=== PATIENT | male | born 2000 | race African-American/Black ===

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

== ENCOUNTER 2020-08-16 08:15 | Emergency (ER) | payer SELFPAY ==
[2020-08-16 08:17] VITALS: BP 122/78; PULSE 69; RESP 16; TEMP 36.2; O2SAT 100; BMI 21.7
--- NOTE | 2020-08-16 08:34 | EDS_ITS ---
HPI History of Present Illness Chief Complaint: Upper Extremity Injury Narrative Narrative: Patient presenting for evaluation secondary to pain and swelling in his bilateral wrists. Patient states that he was dealing with a slight rash over his left chest. He states that it was itchy, when he woke up this morning it seemed like that rash was gone he had a translocated more so over to the lateral portion of his left forearm but now he is waking up with a significant amount of bilateral wrist pain. Pain is worse with movement. Denies any fevers. He does report the potentially has been having some night sweats. He denies any other infectious symptoms such as cough abdominal pain nausea vomiting diarrhea. Patient denies that he has been camping, no tick bites or insect bites. He is never really had any prior similar episodes in the past. The wrist pain is atraumatic and has not really been associated with any sort of increased use, lifting twisting pushing or pulling. Patient denies any urinary signs or symptoms, he denies any penile discharge. He denies any history of alcohol or tobacco use or any IV drug use or illicit drug use. Patient has not tried anything for this yet. PFSH PFSH Home Medications tramadol [Ultram] 50 mg PO Q6H PRN PRN #10 tab 07/10/16 [Rx Last Taken Unknown] naproxen 500 mg PO BID PRN #20 tab 08/16/20 [Rx Last Taken Unknown] Allergy/AdvReac Type Severity Reaction Status Date / Time No Known Allergies Allergy Verified 08/16/20 08:16 Social History Smoking Status: Never smoker ROS [facility] ED Constitutional Constitutional ED: Reports other Details: Night sweats Eyes Eyes: Denies change in vision ENT ENT ED: Denies rhinorrhea or sore throat Cardiovascular Cardiovascular: Denies chest pain or palpitations Respiratory/Chest Respiratory/Chest: Denies cough or dyspnea Gastrointestinal Gastrointestinal: Denies abdominal pain, diarrhea, nausea or vomiting Genitourinary Genitourinary ED: Denies dysuria, hematuria or urinary frequency Musculoskeletal Musculoskeletal: Reports myalgias; Denies back pain or neck pain Integumentary Reports rash Neurologic Neurologic: Denies headache(s), paresthesias or weakness Psychiatric Psychiatric: Denies anxiety or depression Endocrine Endocrinology: Denies polydipsia or polyuria Hematologic/Lymphatic Hematologic/Lymphatic: Denies easy bleeding or easy bruising Allergic/Immunologic Allergic/Immunologic ED: Denies urticaria EXAM Physical Exam Const Vital Signs: 08/16/20 08:17 Temperature 97.1 F L Temperature Source Temporal Pulse Rate 69 Respiratory Rate 16 Blood Pressure 122/78 H Blood Pressure Mean 92 Pulse Ox 100 Oxygen Delivery Method Room Air Positive well nourished and well developed General Appearance ED: well developed and NAD HEENT Reports moist mucous membranes normocephalic and atraumatic Eyes PERRL and EOMs intact bilaterally Neck full ROM and supple General: Negative for tenderness Chest Wall inspection of chest normal Resp normal respiratory effort and clear to auscultation bilaterally Cardio regular rate, regular rhythm and no murmurs Cardio Narrative: 2+ radial, 2+ DP pulses bilaterally symmetric GI non-tender, non-distended and no masses Palpation: soft Back/Spine no CVA tenderness Extremity Extremity Narrative: Examination of the bilateral upper extremities shows pain with range of motion of the bilateral wrists. No obvious joint effusion no warmth or erythema is noted. Patient does complain of some mild pain on palpation of the ulnar styloids. Normal range of motion of the fingers normal capillary refill normal pulses. Examination of the patient's left arm shows a rash over the ulnar portion of the forearm but almost appears urticarial. No evidence of target lesions. Neuro oriented x3, CN's II-XII intact bilaterally, moves all extremities, no focal motor deficits and no sensory deficits noted Sensorium / Orientation: alert Skin Skin Narrative: No evidence of target lesions no evidence of splinter hemorrhages, Osler nodes, or Janeway lesions. No evidence of tick attachment or engorgement. Lesions: no lesions Rashes: no rashes MDM MDM MDM Narrative Medical decision making narrative: Patient presented for evaluation secondary to atraumatic bilateral wrist pain and a abnormal rash. I considered the possibility of infection in this patient, he does not seem to have evidence of infectious arthritis there is no pain with short arc range of motion. This potentially could be inflammatory given the atraumatic onset, given his age I also considered the possibility of abnormal presentation of STD or bacteremia from drugs or other etiology but he seems to be low risk and is denying any risk factors for this. Regardless I did perform a work-up on the patient he has no signs of leukocytosis, no neutrophilia. Chemistry including liver panel was unremarkable. CRP was found to be unremarkable. I did perform a urinalysis which shows no signs of infection this will be sent for culture for GC and chlamydia, I do not feel that a presentation of syphilis is currently at play so I did not send an RPR. Patient does not have any history of tick bite and will think that this is a presentation of Lyme disease. Patient had improvement with treatment with Toradol, at this point do not feel that further emergency department work-up is indicated. Patient will be given referral to primary care, will be started on a course of Naprosyn. Patient was discharged in improved condition. Lab Data Attestation: I reviewed the patient's lab results. Labs: Laboratory Data 08/16/20 08/16/20 08/16/20 08:50 08:50 09:15 WBC 6.7 RBC 5.18 Hgb 15.7 Hct 44.8 MCV 86.5 MCH 30.3 MCHC 35.0 RDW Std Deviation 37.3 RDW Coeff of Valeriy 11.9 Plt Count 218 MPV 9.6 Immature Gran % (Auto) 0.300 Neut % (Auto) 43.7 L Lymph % (Auto) 38.3 [place] % (Auto) 12.0 H Eos % (Auto) 5.1 H Baso % (Auto) 0.6 Absolute Neuts (auto) 2.9 Absolute Lymphs (auto) 2.56 Nucleated RBC % 0 ESR 2 Sodium 136 Potassium 3.8 Chloride 104 Carbon Dioxide 30.0 Anion Gap 2 L BUN 12 Creatinine 1.01 Estim Creat Clear Calc 118.76 Est GFR (MDRD) Af Amer 120 Est GFR (MDRD) Non-Af 99 BUN/Creatinine Ratio 11.9 Glucose 94 Calcium 9.6 Total Bilirubin 0.50 AST 21 ALT 35 Alkaline Phosphatase 80 C-React Prot Ext Range < 2.90 Total Protein 8.2 Albumin 4.3 Globulin 3.9 Albumin/Globulin Ratio 1.1 Urine Color Yellow Urine Clarity Clear Urine pH 6.5 Ur Specific [place] 1.020 Urine Protein Negative Urine Glucose (UA) Normal Urine Ketones Negative Urine Occult Blood Negative Urine Nitrite Negative Urine Bilirubin Negative Urine Urobilinogen 1 H Ur Leukocyte Esterase Negative Urine RBC 0 SEEN Urine WBC 0 SEEN Ur Squamous Epith Cells 0 SEEN Urine Bacteria 1+ Urine Mucus 0 SEEN Discharge Plan Triage Chief Complaint: Upper Extremity Injury ED Provider: Esdras Edwards Dx/Rx/DC Orders Clinical Impression: Acute pain of both wrists Instructions: ED Arthralgia Prescriptions: New naproxen 500 mg tablet 500 mg PO BID PRN Qty: 20 RF: 0 No Action tramadol [Ultram] 50 MG tablet 50 mg PO Q6H PRN PRN (Reason: Pain) Qty: 10 RF: 0 Primary Care Provider: Antonio Lowe Referrals: Antonio Lowe MD [Primary Care Provider] - 1 Week Disposition Disposition: Home, self care
[2020-08-16] MEDS: Ketorolac 15 MG/ML Vial IV (08:56)
[2020-08-16 08:58] LABS: Absolute Lymphocyte Count 2.56 X10^3/uL (0.83-4.51); Absolute Neutrophil Count 2.9 X10^3/uL (2.0-7.7); Basophil# 0.04 X10^3/uL; Basophil% 0.6 % (0-1); Eosinophil# 0.34 X10^3/uL; Eosinophils% 5.1 % (0-5); Hematocrit 44.8 % (40-54); Hemoglobin 15.7 g/dL (13.0-16.5); Lymphocyte # 2.56 X10^3/ul (0.83-4.51); Lymphocyte % 38.3 % (19-41); Mean Corpuscular Hgb 30.3 pg (27.0-32.0); Mean Corpuscular Volume 86.5 fL (80-94); Mean Platelet Vol. 9.6 fl (6.2-12.0); NRBC Flagged by Analyzer 0 % (0-5); Neutrophil # 2.93 X10^3/uL (2.7-7.7); Neutrophil % 43.7 % (47-70); Platelet Count 218 K/mm3 (150-450); RBC Distribution Width CV 11.9 % (11.6-14.6); RBC Distribution Width SD 37.3 fl (35.1-43.9); Red Blood Count 5.18 M/mm3 (4.6-6.2); White Blood Count 6.7 K/mm3 (4.4-11.0)
[2020-08-16 09:06] LABS: Erythrocyte Sedimentation Rate 2 mm/hr (0-20)
[2020-08-16 09:20] LABS: Mucous, Urine 0 SEEN /hpf (<or=2+); Red Blood Cells-Urine 0 SEEN /hpf (0-5); Squamous Epithelial Cells - UA 0 SEEN /hpf (0-5); White Blood Cells 0 SEEN /hpf (0-5)
[2020-08-16 09:22] LABS: Color, Urine Yellow (Yellow); Glucose, Dipstick Normal (Normal); Ketone-Dipstick Negative (Negative); Leukocyte Esterase-Dipstick Negative /ul (Negative); Nitrite-Dipstick Negative (Negative); Occult Blood-Urine Negative /ul (Negative); Protein-Dipstick Negative (Negative); Urine Bilirubin Dipstick Negative (Negative); Urine Clarity Clear (Clear); Urine Urobilinogen 1 mg/dl (Normal); Urine pH 6.5 (5.0 - 8.0)
[2020-08-16 09:28] LABS: Bacteria 1+ /hpf (None Seen)
[2020-08-16 09:37] LABS: ALB/GLOB Ratio 1.1 RATIO (0.9-2.4); AST(SGOT) 21 U/L (15-37); Alanine Aminotransfer ALT/SGPT 35 U/L (16-61); Albumin, Serum 4.3 g/dL (3.2-5.0); Alkaline Phosphatase 80 U/L (45-117); Anion Gap 2 (5-15); BUN 12 mg/dL (7-18); BUN/Creat Ratio 11.9 RATIO (10-20); CRP < 2.90 mg/L (0.0-3.0); Calcium,Total 9.6 mg/dL (8.5-10.1); Chloride 104 mmol/L (98-107); Creatinine, Serum 1.01 mg/dL (0.70-1.30); EST Glomerular Filtration Rate 99 mL/min (>60); Est Glom Filt Rate - Afr Amer 120 mL/min (>60); Estimated Creatinine Clearance 118.76 ml/min; Globulin 3.9 g/dL (2.2-4.2); Glucose 94 mg/dL (74-106); Potassium 3.8 mmol/L (3.5-5.1); Protein, Total 8.2 g/dL (6.4-8.2); Sodium Level 136 mmol/L (136-145)
[2020-08-16 09:52] VITALS: RESP 18
[2020-08-16 14:35] LABS: Chlamydia Trachomatis by PCR Negative (Negative); Neisserai gonorrhoeae by PCR Negative (Negative); Probe Check PASS; Sample Adequacy Control PASS; Specimen Processing Control PASS
== END 2020-08-16 09:52 | disposition home or self-care (01) ==
PROVIDERS: Emergency Provider Emergency Medicine; PCP Pediatrics
DX: M25.531 Pain in right wrist (principal); M25.532 Pain in left wrist; R21 Rash and other nonspecific skin eruption
CPT/HCPCS: 80053; 81001; 85025; 85652; 86140; 87491; 87591; 96374; 99284; A4216

== ENCOUNTER 2020-09-19 04:52 | Emergency (ER) | payer MEDICAID, SELFPAY ==
[2020-09-19 04:53] VITALS: BP 149/114; PULSE 101; RESP 18; TEMP 36.1; O2SAT 95; BMI 21.7
--- NOTE | 2020-09-19 05:02 | RAD_ITS ---
STUDY: X-RAY - LEFT HAND REASON FOR EXAM: Male, 20 years old. Pain after injury. TECHNIQUE: 3 view(s) of the hand. COMPARISON: None. FINDINGS: Normal radiocarpal articulation. Normal distal radioulnar joint. Normal visualized carpal bones. Normal carpal articulations Normal carpometacarpal articulation of the thumb. Normal second through fifth carpometacarpal joints. Normal metacarpi. Normal metacarpophalangeal joint of the thumb. Normal interphalangeal joint of the thumb. Normal proximal and distal phalanges of the thumb. Normal metacarpophalangeal joints of the second through fifth fingers. Normal proximal and distal interphalangeal joints of the second through fifth fingers. Normal phalanges of the second through fifth fingers. The soft tissue structures are unremarkable. RAD/Hand Min 3 Views IMPRESSION: Normal x-ray examination of the hand. Electronically Signed: Jose Blair MD at 6:09 EDT , Service support ,
--- NOTE | 2020-09-19 05:07 | EDS_ITS ---
HPI History of Present Illness Chief Complaint: Upper Extremity Injury Informant: patient and spouse/S.O. Occured/Mechanism Comment: Atraumatic bilateral hand/wrist pain Onset/Context/Timing Onset: Yesterday (2199) Context: Sudden Onset Timing: Continuous Quality of Pain: Aching, Burning and Throbbing Location: Right and left hand radiating to wrist Current Severity: Severe Maximum Severity: Severe Worsened by: Possibly movement Relieved by: Nothing Associated Symptoms Associated Symptoms: Negative for Parasthesia, Weakness and Loss of Funtion Narrative Narrative: Isauro is a 20-year-old [id number] male presents with bilateral atraumatic right hand pain rating to his wrist. He had similar presentation the end of July. Laboratory work-up at that time was negative. He denies history rheumatoid arthritis or autoimmune disorder. He does not believe any family numbers have autoimmune disorder. He denies fever, chills night sweats. He complains of a burning sensation. There is no precipitating factor. There is no alleviating factor. He denies history of gout or pseudogout. He denies paresthesia, anesthesia or motor weakness. He denies rash or skin lesions. He denies history of renal disease. He denies dysuria, frequency, urgency or hematuria. He denies swelling of his joints. Tetanus Immunization: 5-10 years Prior similar symptoms: Yes Recent Illness/Hospitalization: No (August 19, 2020) PFSH PFSH Home Medications tramadol [Ultram] 50 mg PO Q6H PRN PRN #10 tab 07/10/16 [Rx Last Taken Unknown] naproxen 500 mg PO BID PRN #20 tab 08/16/20 [Rx Last Taken Unknown] naproxen 500 mg PO BID #14 tab 09/19/20 [Rx Last Taken Unknown] Allergy/AdvReac Type Severity Reaction Status Date / Time No Known Allergies Allergy Verified 09/19/20 04:55 Social History (Updated 09/19/20 @ 05:[address] Sudarshan Diego MD) household members: significant other Smoking Status: Never smoker alcohol intake: never substance use type: does not use ROS ROS ED Constitutional Constitutional ED: Denies chills, subjective, sweats or weight loss Eyes Eyes: Denies blurry vision or change in vision ENT ENT ED: Denies ear pain, rhinorrhea or sore throat Cardiovascular Cardiovascular: Denies chest pain or palpitations Respiratory/Chest Respiratory/Chest: Denies cough or dyspnea Gastrointestinal Gastrointestinal: Denies abdominal pain, constipation, diarrhea, melena, nausea or vomiting Genitourinary Genitourinary ED: Reports other Details: Denies penile discharge ; Denies dysuria, hematuria or urinary frequency Musculoskeletal Musculoskeletal: Reports back pain, myalgias and neck pain Integumentary Reports rash and other Details: At 05 10 I was informed by nurse that he has bumps on his upper extremity. There is evidence of urticaria and the urticarial rash is noted on the trunk and upper torso. Patient states this is happened in the past. ; Denies abscess or Abrasions Neurologic Neurologic: Denies headache(s), paresthesias or weakness Psychiatric Psychiatric: Reports anxiety Endocrine Endocrinology: Denies polydipsia, polyphagia or polyuria Hematologic/Lymphatic Hematologic/Lymphatic: Denies easy bleeding or easy bruising Allergic/Immunologic Allergic/Immunologic ED: Reports urticaria; Denies mouth swelling or tongue swelling EXAM Physical Exam Const Vital Signs: 09/19/20 04:53 Temperature 97 F L Temperature Source Temporal Pulse Rate 101 H Respiratory Rate 18 Blood Pressure 149/114 H Blood Pressure Mean 125 Pulse Ox 95 Oxygen Delivery Method Room Air Positive well nourished and well developed General Appearance ED: well developed and other Patient is pacing. He has obvious discomfort. ; Negative for cyanotic or diaphoretic HEENT Reports moist mucous membranes HEENT Narrative: Nares patent. Posterior pharynx unremarkable. normocephalic and atraumatic Eyes PERRL and EOMs intact bilaterally Eyes Narrative: Conjunctive is pink. Sclerae anicteric. Neck full ROM and supple General: tenderness and other There is no cervical lymphadenopathy. Chest Wall inspection of chest normal Resp normal respiratory effort and clear to auscultation bilaterally Cardio regular rate, regular rhythm, S1 normal heart sound, S2 normal heart sound and no murmurs Back/Spine no CVA tenderness Cervical Spine: Negative for cervical spine tenderness Thoracic Spine / Upper Back: Negative for thoracic spinal tenderness Lumbar Spine / Lower Back: Negative for lumbar spinal tenderness Extremity full ROM Extremity Narrative: May be slight swelling of the right hand compared to left. The joints of the fingers are not warm or boggy. There is no obvious effusion of the left or right wrist. Median, radial and ulnar function intact. Neuro oriented x3, CN's II-XII intact bilaterally and no focal motor deficits Sensorium / Orientation: alert Psych mental status grossly normal Skin Skin Narrative: Initially patient had no rash. Now he has urticaria. He seems anxious. This may be due to stress. Lesions: no lesions Rashes: no rashes Trauma: no lacerations or abrasions MDM MDM MDM Narrative Medical decision making narrative: X-ray of his hands were obtained to see if there is any evidence to suggest rheumatoid arthritis. CBC was obtained to assess for anemia and differential. Electrolyte panel was obtained as well to assess renal function as well as calcium. ESR and CRP were ordered. The ESR may be normal since pain started only hours ago. The C-reactive protein rises much more quickly. Document for July visit was read. I was informed that patient's pain did not improve with IV Toradol. 4 mg of IV morphine was ordered. Patient was reassessed at 0703. He is no longer in discomfort. Is able to use his fingers to text. He was informed that his work-up is negative. He was informed that he will need follow-up to determine the cause and to evaluate for autoimmune disorder. Lab Data Attestation: I reviewed the patient's lab results. Lab results narrative: CBC, and indices are unremarkable. There is a pred ominant lymphocytosis. ESR is normal. Comprehensive metabolic panel is normal. C-reactive protein is normal. Total protein and albumin are normal. Calcium and alkaline phosphatase are normal. Radiography Diagnostic Testing: Three-view x-ray of the right and left hand were obtained. There is no acute process noted there are three screws noted PIP joint right ring finger. Otherwise, the x-ray of the right and left hand are normal. Discharge Plan Triage Chief Complaint: Upper Extremity Injury ED Provider: Sudarshan Diego Dx/Rx/DC Orders Clinical Impression: Pain involving joints of fingers of both hands, Acute pain of both wrists Instructions: ED Pain, Acute, Uncertain Cause Prescriptions: New naproxen 500 MG tablet 500 mg PO BID Qty: 14 RF: 0 No Action tramadol [Ultram] 50 MG tablet 50 mg PO Q6H PRN PRN (Reason: Pain) Qty: 10 RF: 0 naproxen 500 mg tablet 500 mg PO BID PRN Qty: 20 RF: 0 Primary Care Provider: Care Physician,No Primary Referrals: Care Physician,No Primary [Primary Care Provider] - Activity Restrictions/Additional Instructions: Since you do not have a physician and you are on your mother's insurance recommend choosing a primary care doctor that is in network and referral to pullman conductor. Disposition Disposition: Home, Self Care
[2020-09-19] MEDS: Ketorolac 15 MG/ML Vial IV (05:20)
[2020-09-19 05:23] LABS: Absolute Lymphocyte Count 4.45 X10^3/uL (0.83-4.51); Absolute Neutrophil Count 4.4 X10^3/uL (2.0-7.7); Basophil# 0.04 X10^3/uL; Basophil% 0.4 % (0-1); Eosinophil# 0.25 X10^3/uL; Eosinophils% 2.5 % (0-5); Hematocrit 42.7 % (40-54); Hemoglobin 15.5 g/dL (13.0-16.5); Lymphocyte # 4.45 X10^3/ul (0.83-4.51); Lymphocyte % 43.7 % (19-41); Mean Corp Hgb Conc 36.3 g/dL (32-36); Mean Corpuscular Hgb 30.2 pg (27.0-32.0); Mean Corpuscular Volume 83.2 fL (80-94); Mean Platelet Vol. 9.5 fl (6.2-12.0); Monocyte# 1.01 X10^3/uL; Monocyte% 9.9 % (0-10); NRBC Flagged by Analyzer 0 % (0-5); Neutrophil # 4.42 X10^3/uL (2.7-7.7); Neutrophil % 43.3 % (47-70); Platelet Count 240 K/mm3 (150-450); RBC Distribution Width SD 36.9 fl (35.1-43.9); Red Blood Count 5.13 M/mm3 (4.6-6.2); White Blood Count 10.2 K/mm3 (4.4-11.0)
--- NOTE | 2020-09-19 05:25 | RAD_ITS ---
STUDY: X-RAY - RIGHT HAND REASON FOR EXAM: Male, 20 years old. Pain after injury. TECHNIQUE: 3 view(s) of the hand. COMPARISON: None. FINDINGS: Normal radiocarpal articulation. Normal distal radioulnar joint. Normal visualized carpal bones. Normal carpal articulations Normal carpometacarpal articulation of the thumb. Normal second through fifth carpometacarpal joints. Normal metacarpi. Normal metacarpophalangeal joint of the thumb. Normal interphalangeal joint of the thumb. Normal proximal and distal phalanges of the thumb. Normal metacarpophalangeal joints of the second through fifth fingers. 3 transversely oriented screws are present at the base of the middle phalanx ring finger. There is a small osseous protrusion lateral aspect of the middle phalanx at the level of the proximal metaphysis which may represent posttraumatic or postsurgical change. 3 mm osseous density within the soft tissue medial to the distal diaphysis proximal phalanx of the ring finger which may be related to old trauma. Mild soft tissue swelling adjacent to the proximal interphalangeal joint of the ring finger. Normal phalanges of the second through fifth fingers. RAD/Hand Min 3 Views IMPRESSION: Postoperative changes middle phalanx of the ring finger. Mild soft tissue swelling proximal interphalangeal joint of the ring finger. Soft tissue swelling could be related to trauma, postsurgical change or infection. Additional findings as above. Electronically Signed: Jose Blair MD at 6:07 EDT , Service support ,
[2020-09-19 05:39] LABS: Erythrocyte Sedimentation Rate 11 mm/hr (0-20)
[2020-09-19 05:56] LABS: ALB/GLOB Ratio 1.2 RATIO (0.9-2.4); AST(SGOT) 26 U/L (15-37); Alanine Aminotransfer ALT/SGPT 51 U/L (16-61); Albumin, Serum 4.3 g/dL (3.2-5.0); Alkaline Phosphatase 87 U/L (45-117); Anion Gap 10 (5-15); BUN 10 mg/dL (7-18); BUN/Creat Ratio 9.8 RATIO (10-20); CRP < 2.90 mg/L (0.0-3.0); Calcium,Total 9.4 mg/dL (8.5-10.1); Chloride 105 mmol/L (98-107); Creatinine, Serum 1.02 mg/dL (0.70-1.30); EST Glomerular Filtration Rate 98 mL/min (>60); Est Glom Filt Rate - Afr Amer 118 mL/min (>60); Globulin 3.7 g/dL (2.2-4.2); Glucose 96 mg/dL (74-106); Potassium 3.5 mmol/L (3.5-5.1); Sodium Level 137 mmol/L (136-145)
[2020-09-19] MEDS: Morphine 4 MG/ML Syringe IV (06:16)
[2020-09-19 07:13] VITALS: RESP 17
== END 2020-09-19 07:14 | disposition home or self-care (01) ==
PROVIDERS: Emergency Provider Emergency Medicine
DX: M79.641 Pain in right hand (principal); M79.642 Pain in left hand; M25.531 Pain in right wrist; M25.532 Pain in left wrist
CPT/HCPCS: 73130; 80053; 85025; 85652; 86140; 96374; 96375; 99283; A4216

== ENCOUNTER 2021-04-24 12:16 | Emergency (ER) | payer MEDICAID, SELFPAY ==
[2021-04-24 12:17] VITALS: PULSE 125; RESP 28; TEMP 36.1; O2SAT 100; BMI 24.7
--- NOTE | 2021-04-24 12:43 | ED.RN ---
PT IN ROOM SCREAMING AND MOANING. THIS RN WALKS TO FRONT, PT COMES RUNNING OUT OF ROOM AND TO TRIAGE AREA. THIS RN ATTEMPTED TO TALK WITH PT. PT RUNS TO WOMENS BATHROOM
== END 2021-04-24 23:59 | disposition left against medical advice (07) ==
LOC: ED 12:43
PROVIDERS: Emergency Provider Emergency Medicine; Visit Provider Emergency Medicine
DX: Z53.21 Procedure and treatment not carried out due to patient leaving prior to being seen by health care provider (principal)
CPT/HCPCS: 99281

== ENCOUNTER 2022-07-25 10:34 | Emergency (ER) | payer MEDICAID, SELFPAY ==
[2022-07-25 10:35] VITALS: BP 138/86; PULSE 73; RESP 14; TEMP 36.4; O2SAT 100; BMI 20.7
--- NOTE | 2022-07-25 11:00 | CM.ED ---
Social Work SW spoke with patient regarding no PCP and gave provider resources. Ramya Zapata [employer], COUNSELING CENTER MANAGER
== END 2022-07-25 11:47 | disposition left against medical advice (07) ==
LOC: ED 11:43
DX: K08.89 Other specified disorders of teeth and supporting structures (principal)

== ENCOUNTER 2023-11-01 15:50 | Emergency (ER) | payer MEDICAID, SELFPAY ==
[2023-11-01 15:51] VITALS: BP 112/78; PULSE 88; RESP 19; TEMP 36.6; O2SAT 96; BMI 22.9
== END 2023-11-01 16:37 | disposition left against medical advice (07) ==
LOC: ED 16:43
DX: Z53.21 Procedure and treatment not carried out due to patient leaving prior to being seen by health care provider (principal)
CPT/HCPCS: 99282; A4216

== ENCOUNTER 2023-11-14 09:07 | Emergency (ER) | payer MEDICAID, SELFPAY ==
[2023-11-14 09:07] VITALS: BP 131/58; PULSE 75; RESP 14; TEMP 36.6; O2SAT 99; BMI 22.8
--- NOTE | 2023-11-14 09:35 | RAD_ITS ---
STUDY: X-RAY CHEST REASON FOR EXAM: Male, 23 years old. Chest pain. TECHNIQUE: Single frontal view of the chest on 2 images. COMPARISON: None. FINDINGS: The lungs are clear and expanded. There is no demonstrated pleural abnormality. Normal size heart. Normal mediastinum and pretty. Normal visualized pulmonary arteries. Normal visualized aortic arch and descending thoracic aorta. No abnormality of the visualized soft tissue structures of the upper abdomen. RAD/Chest 1 View (Portable) IMPRESSION: No active or acute cardiopulmonary disease. Electronically Signed: David Jones MD at 10:01 EDT ,
--- NOTE | 2023-11-14 09:36 | EDS_ITS ---
HPI History of Present Illness Chief Complaint: Chest Pain Informant: patient Onset/Context/Timing Onset: Today and Weeks Context: Gradual Onset Timing: Continuous Current Severity: Mild Maximum Severity: Mild Narrative Narrative: 23-year-old male no significant past medical history. 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 Carries a lot of things. Said diffuse bodyaches for the last 2 weeks. This morning around 7:40 AM he got lower sternal chest pain no radiation to his back neck or jaw. This is not associated with exertion. He has no cardiac history. No history of DVT or PE or risk factors. No leg pain or swelling. No nausea, vomiting or diarrhea. No fever or chills. Prior similar symptoms: No Recent Illness/Hospitalization: No PFSH PFSH Medical History no medical history no medical history Home Medications ?Medication ?Instructions ?Recorded ?Last Taken ?Type NK 04/24/21 Unknown History Allergy/AdvReac Type Severity Reaction Status Date / Time No Known Allergies Allergy Verified 11/14/23 09:07 Surgical History History of hand surgery Social History household members: significant other Smoking Status: Never smoker alcohol intake: never substance use type: does not use ROS ROS ED ROS Narrative Denies recent illness. Constitutional Constitutional ED: Denies chills or fever(s) Eyes Eyes: Denies blurry vision ENT ENT ED: Denies ear pain Cardiovascular Cardiovascular: Reports chest pain Respiratory/Chest Respiratory/Chest: Denies cough, dyspnea or dyspnea on exertion Gastrointestinal Gastrointestinal: Denies abdominal pain, constipation, diarrhea, melena, nausea or vomiting Genitourinary Genitourinary ED: Denies dysuria or hematuria Musculoskeletal Musculoskeletal: Denies arthralgias or back pain Integumentary Denies abscess Neurologic Neurologic: Denies headache(s) Psychiatric Psychiatric: Denies anxiety Endocrine Endocrinology: Denies cold intolerance Hematologic/Lymphatic Hematologic/Lymphatic: Reports none Allergic/Immunologic Allergic/Immunologic ED: Denies mouth swelling, tongue swelling or urticaria EXAM Physical Exam Narrative Exam Narrative: Well-appearing 23-year-old male. Vital signs stable afebrile. Significant other and 2 children at bedside. H EENT exam unremarkable. Neck nontender. No JVD. No lymphadenopathy. Lungs clear to auscultation bilaterally. Heart regular rate and rhythm no murmur. Chest wall and ribs nontender. No ecchymosis or bruising. No syncope or air. Abdomen is soft and nontender. Moving all 4 extremities. 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 Radial pulses equal symmetrical. Calves are nontender without edema or cords. Back nontender. Neurologically is awake and alert no focal motor deficits. Benign exam. Pulse ox 99% on room air no hypoxia. Const Vital Signs: 11/14/23 09:07 11/14/23 09:27 11/14/23 09:35 Temperature 98 F Temperature Source Temporal Pulse Rate 75 Respiratory Rate 14 Respiratory Effort Normal Blood Pressure 131/58 H Blood Pressure Mean 82 Pulse Ox 99 Oxygen Delivery Method Room Air Room Air 11/14/23 11:07 Temperature Temperature Source Pulse Rate 59 L Respiratory Rate 16 Respiratory Effort Blood Pressure 109/70 Blood Pressure Mean 83 Pulse Ox 99 Oxygen Delivery Method Room Air Positive well nourished and well developed; Negative for obese, cachectic, contractures or unkempt General Appearance ED: well developed and NAD; Negative for unkempt, cachectic, contractures, cyanotic, diaphoretic or pallor Nutritional Appearance: Negative for cachectic or obese HEENT Reports moist mucous membranes Negative for trauma or tenderness Eyes PERRL and EOMs intact bilaterally General Eye ED: Negative for pale conjunctiva or scleral icterus Neck no lymphadenopathy, supple and no JVD General: Negative for tenderness Chest Wall inspection of chest normal and palpation of chest normal Chest: Negative for other Resp normal respiratory effort and clear to auscultation bilaterally Effort and Inspection: Negative for retractions Auscultation: Negative for rales, rhonchi, wheezes or diminished lung sounds Cardio regular rate, regular rhythm, S1 normal heart sound, S2 normal heart sound and no murmurs Rate: Negative for tachycardic Rhythm: Negative for abnormal rhythm GI normal to inspection, nondistended, normoactive bowel sounds, non-tender, non- distended and no masses Palpation: soft; Negative for tender, guarding or rebound tenderness present Back/Spine no CVA tenderness General Back: Negative for CVA tenderness or other Cervical Spine: Negative for cervical spine tenderness Thoracic Spine / Upper Back: Negative for thoracic spinal tenderness or paraspinal muscle tenderness Lumbar Spine / Lower Back: Negative for lumbar spinal tenderness Extremity normal to inspection General Extremety ED: Negative for edema or tenderness General Extremity: Negative for edema Neuro oriented x3 and CN's II-XII intact bilaterally Sensorium / Orientation: alert; Negative for orientation impaired, lethargic or stuporous Motor Exam: strength 5/5 throughout Psych mental status grossly normal Appearance: Negative for unkempt Attitude: No agitated Mood & Affect: Negative for depressed or tearful Skin no rashes or lesions noted, no wounds and skin turgor normal General Skin Exam: elasticity normal; Negative for jaundice or pallor Lesions: No lesion noted Rashes: No rashes noted Trauma: Negative for abrasion Wounds: Negative for wounds noted MDM MDM MDM Narrative Medical decision making narrative: 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 He has no reproducible pain. This morning he had chest pain around 7:40 AM. Is not reproducible. He has no cardiac history or risk factors. He has had no recent exertional dyspnea or exertional chest pain. He has no history of DVT or PE or risk factors. His exam is normal. Undergo cardiac workup. Given Toradol for pain. Repeat exam at 11:56 AM patient doing well. Exam normal. We went over all his normal labs, x-ray and EKG. I think this may be from anxiety and stress and he may have had a hyperventilation syndrome with carpopedal spasm. He is obviously not doing that now. But the way describes it sounds like that. He and family are comfortable with him being discharged home. History & Record Review Discussion w/independent historian: Patient and Family Additional record(s) reviewed:: Prior inpatient record, Prior outpatient record, Prior ED visit and Prior labs Lab Data Attestation: I reviewed the patient's lab results. Lab results narrative: CBC normal. White count of 5. H&H 14 and 40. Platelets 221. Electrolytes unremarkable gap 3. Normal BUN and creatinine. Glucose 92. Troponin 4. Chest x-ray normal. EKG normal. Labs: Laboratory Results - last 24 hr 11/14/23 09:40 WBC 5.8 RBC 4.64 Hgb 14.0 Hct 40.4 MCV 87.1 MCH 30.2 MCHC 34.7 RDW Std Deviation 39.7 RDW Coeff of Valeriy 12.6 Plt Count 221 MPV 9.4 Immature Gran % (Auto) 0.200 Neut % (Auto) 49.6 Lymph % (Auto) 37.2 [place] % (Auto) 9.2 Eos % (Auto) 3.1 Baso % (Auto) 0.7 Absolute Neuts (auto) 2.9 Absolute Lymphs (auto) 2.14 Nucleated RBC % 0 Sodium 139 Potassium 4.0 Chloride 107 Carbon Dioxide 29.0 Anion Gap 3 L BUN 11 Creatinine 0.92 Estim Creat Clear Calc 133.45 Est GFR (MDRD) Af Amer 129 Est GFR (MDRD) Non-Af 106 BUN/Creatinine Ratio 11.9 Glucose 92 Calcium 9.3 Troponin I High Sens 4 Radiography Chest X-Ray - ED: 1 View, Read by ED Physician, Read by Radiologist, Heart, Lungs, Mediastinum, Bony Structures and No Acute Disease Diagnostic Testing: Clinical Impression(s) from Imaging Studies Chest X-Ray 11/14/23 09:35 IMPRESSION: No active or acute cardiopulmonary disease. Electronically Signed: David Jones MD at 10:01 EDT , Chest x-ray, portable 2 films dark turbid both by myself and the radiologist shows no acute abnormality. Normal cardiac silhouette. Normal lung pena. No infiltrates. No pneumothorax. Rhythm Strip Rhythm Strip: Sinus Rhythm Rate: 67 Ectopy: None EKG Initial EKG: Attestation: I personally reviewed and interpreted this EKG as follows: Interpretation: Sinus Rhythm and No Acute Injury Pattern Comments: Normal sinus rhythm rate of 67 no acute signs of VT nor ischemia nor pericarditis. No S1 Q3 T3. Discharge Plan Triage Chief Complaint: Chest Pain ED Provider: Zach Gonzalez Dx/Rx/DC Orders Clinical Impression: Acute hyperventilation syndrome, Anxiety Instructions: ED Hyperventilation Syndrome Prescriptions: No Action NK Primary Care Provider: Care Physician,No Primary Referrals: Aravind Iglesias MD [Non-Staff] - As Needed Care Physician,No Primary [Primary Care Provider] - Activity Restrictions/Additional Instructions: Most likely secondary to anxiety and hyperventilating. All your labs, chest x-ray and EKG were normal. Print Language: [place] Disposition Disposition: Home, Self Care
--- NOTE | 2023-11-14 09:45 | ED.RN ---
NO OLD EKGS
[2023-11-14] MEDS: Ketorolac 30 MG/ML Syringe IV (09:50)
[2023-11-14 09:54] LABS: Absolute Lymphocyte Count 2.14 X10^3/uL (0.83-4.51); Absolute Neutrophil Count 2.9 X10^3/uL (2.0-7.7); Basophil# 0.04 X10^3/uL; Basophil% 0.7 % (0-1); Eosinophil# 0.18 X10^3/uL; Eosinophils% 3.1 % (0-5); Hematocrit 40.4 % (40-54); Lymphocyte # 2.14 X10^3/ul (0.83-4.51); Lymphocyte % 37.2 % (19-41); Mean Corp Hgb Conc 34.7 g/dL (32-36); Mean Corpuscular Hgb 30.2 pg (27.0-32.0); Mean Corpuscular Volume 87.1 fL (80-94); Mean Platelet Vol. 9.4 fl (6.2-12.0); Monocyte# 0.53 X10^3/uL; Monocyte% 9.2 % (0-10); NRBC Flagged by Analyzer 0 % (0-5); Neutrophil # 2.86 X10^3/uL (2.7-7.7); Neutrophil % 49.6 % (47-70); Platelet Count 221 K/mm3 (150-450); RBC Distribution Width CV 12.6 % (11.6-14.6); RBC Distribution Width SD 39.7 fl (35.1-43.9); Red Blood Count 4.64 M/mm3 (4.6-6.2); White Blood Count 5.8 K/mm3 (4.4-11.0)
[2023-11-14 10:55] LABS: Anion Gap 3 (5-15); BUN 11 mg/dL (7-18); BUN/Creat Ratio 11.9 RATIO (10-20); Calcium,Total 9.3 mg/dL (8.5-10.1); Chloride 107 mmol/L (98-107); Creatinine, Serum 0.92 mg/dL (0.70-1.30); EST Glomerular Filtration Rate 106 mL/min (>60); Est Glom Filt Rate - Afr Amer 129 mL/min (>60); Estimated Creatinine Clearance 133.45 ml/min; Glucose 92 mg/dL (74-106); Sodium Level 139 mmol/L (136-145); Troponin-I HS (w/2H Reflex) 4 pg/mL (3.0-78.0)
[2023-11-14 11:07] VITALS: BP 109/70; PULSE 59; RESP 16; O2SAT 99
[2023-11-14 12:07] VITALS: BP 122/76; PULSE 62; RESP 16; TEMP 36.6; O2SAT 100
[2023-11-14 12:39] LABS: Reflex Troponin-HS? (from REC) Y
== END 2023-11-14 12:08 | disposition home or self-care (01) ==
PROVIDERS: Emergency Provider Emergency Medicine; Visit Provider Emergency Medicine
DX: R07.9 Chest pain, unspecified (principal); F41.9 Anxiety disorder, unspecified; R06.4 Hyperventilation
CPT/HCPCS: 71045; 80048; 84484; 85025; 93005; 96374; 99283; A4216